=== PATIENT | female | born 1940 | race Caucasian/White ===

== ENCOUNTER 2018-03-11 07:24 | Day surgery (SDC) | payer OTHER ==
[~2018-03-11] VITALS: Ht 170.2 cm; Wt 53.9 kg
[~2018-03-11 07:24] MED LIST: AEC81 PO; ATOR10 PO; CALC-724 PO; CARV3.1262 PO; DOXY100C2 PO; FISH OIL 1200 MG PO; FLAX100020 PO; FURO20TA4 PO; LISI10TA7 PO; MULT-264 PO; SODIUM CHLORIDE 0.9% 1000ML 1,000 ML IV ONE; VITA1CAP20 PO; [UNRECOGNIZED DRUG - CODE] PO
[2018-03-11 07:55] VITALS: BP 158/92
[2018-03-11] MEDS ORDERED: CYCL30DR OP (08:48)
[2018-03-11] MEDS ORDERED: ATOR20TA PO (08:48)
[2018-03-11] MEDS ORDERED: RAMI5CAP66 PO (08:48)
[2018-03-11] MEDS ORDERED: CARV6.25 PO (08:48)
[2018-03-11] MEDS ORDERED: MEMA5TAB15 PO (08:48)
[2018-03-11] MEDS ORDERED: COQ10 (08:48)
[2018-03-11] MEDS ORDERED: LEVO25TA54 PO (08:48)
[2018-03-11] MEDS ORDERED: HYDR12.530 PO (08:48)
[2018-03-11] MEDS ORDERED: GLYCOPYRROLATE 0.2 MG/ML 5 ML VIAL ONE (09:47)
[2018-03-11] MEDS ORDERED: PROPOFOL 1000 MG/100 ML 100 ML IV ONE (09:47)
[2018-03-11 09:53] VITALS: BP 106/58
[2018-03-11 09:59] VITALS: BP 106/58
[2018-03-11 10:05] VITALS: BP 107/65
== END 2018-03-11 10:29 | disposition home or self-care (01) ==
LOC: ENDO 07:24 → DAH 07:24 → ENDO 10:29
PROVIDERS: ATTEND Internal Medicine
DX: K31.5 Obstruction of duodenum (principal); K44.9 Diaphragmatic hernia without obstruction or gangrene; K31.89 Other diseases of stomach and duodenum; B19.20 Unspecified viral hepatitis C without hepatic coma; K21.0 Gastro-esophageal reflux disease with esophagitis; M19.90 Unspecified osteoarthritis, unspecified site; M81.0 Age-related osteoporosis without current pathological fracture; E03.9 Hypothyroidism, unspecified; K22.2 Esophageal obstruction; I11.0 Hypertensive heart disease with heart failure; I50.20 Unspecified systolic (congestive) heart failure; Z79.82 Long term (current) use of aspirin; Z79.899 Other long term (current) drug therapy; Z95.0 Presence of cardiac pacemaker
CPT/HCPCS: 43239; 43245; 88305; 93005; A4606; J2704; J3490; J7030

== ENCOUNTER 2018-06-27 10:52 | Emergency (ER) | payer OTHER ==
[~2018-06-27 10:52] MED LIST changes: -ATOR10 PO; +ATOR20TA PO; -CARV3.1262 PO; +CARV6.25 PO; +COQ10; +CYCL30DR OP; -DOXY100C2 PO; -FISH OIL 1200 MG PO; -FURO20TA4 PO; +HYDR12.530 PO; +LEVO25TA54 PO; -LISI10TA7 PO; +MEMA5TAB15 PO; +RAMI5CAP66 PO; -SODIUM CHLORIDE 0.9% 1000ML 1,000 ML IV ONE
[2018-06-27 11:31] LABS: APPEARANCE,URINE Clear (CLEAR); BILIRUBIN,URINE Negative (NEGATIVE); COLOR,URINE Yellow (YELLOW); GLUCOSE, URINE (UA) Negative (NEGATIVE); KETONES,URINE Negative (NEGATIVE); LEUKOCYTE ESTERASE ,URINE Negative (NEGATIVE); NITRATE,URINE Negative (NEGATIVE); OCCULT BLOOD,URINE Negative (NEGATIVE); PROTEIN,URINE Negative (NEGATIVE)
[2018-06-27 12:11] LABS: CREATININE 0.8 mg/dL (0.5-1.5); POTASSIUM 3.4 mmol/L (3.5-5.1)
[2018-06-27 12:16] LABS: ALBUMIN 3.7 g/dL (3.5-5.0); BILIRUBIN,TOTAL 0.8 mg/dL (0.2-1.0); TOTAL PROTEIN, SERUM 7.3 g/dL (6.0-8.3)
[2018-06-27 13:04] LABS: BASOPHILS % (AUTO) 0.8 % (0.0-5.0); EOSINOPHILS % (AUTO) 1.4 % (0.0-8.0); HEMATOCRIT 41.7 % (36-48); LYMPHOCYTES % (AUTO) 15.5 % (21.0-51.0); MEAN CORPUSCULAR HEMOGLOBIN 31.8 pg (27.0-33.0); MEAN CORPUSCULAR HGB CONC 34.4 g/dL (32.0-36.0); MEAN CORPUSCULAR VOLUME 92.4 fL (79-99); MONOCYTES % (AUTO) 10.4 % (3.0-13.0); NEUTROPHILS % (AUTO) 71.9 % (40.0-77.0); NUCLEATED RED BLOOD CELLS 0.1 % (0.0-0.19); PLATELET COUNT (AUTO) 225 K/uL (130-400); RED BLOOD CELL COUNT(AUTO) 4.52 MIL/uL (4.00-5.50); RED CELL DISTRIBUTION WIDTH 12.8 % (11.0-15.5); WHITE BLOOD COUNT (AUTO) 6.1 K/uL (4.8-10.8)
[2018-06-27] MEDS ORDERED: POTASSIUM CHLORIDE 20 MEQ ERTAB PO ONE (14:21)
== END 2018-06-27 15:00 | disposition home or self-care (01) ==
LOC: EDH 10:52
DX: F03.90 Unspecified dementia, unspecified severity, without behavioral disturbance, psychotic disturbance, mood disturbance, and anxiety (principal); E87.6 Hypokalemia; E87.1 Hypo-osmolality and hyponatremia; I50.9 Heart failure, unspecified; K21.9 Gastro-esophageal reflux disease without esophagitis; Z88.1 Allergy status to other antibiotic agents
CPT/HCPCS: 36415; 71045; 80053; 81003; 83880; 84484; 85025; 93005; 96360; 96361